=== PATIENT | female | born 1995 | race American Indian/Alaskan Native ===

== ENCOUNTER 2022-08-30 07:10 | Inpatient (IN) | payer BC ==
[2022-08-30] MEDS ORDERED: Misoprostol 50 MCG (1/2 of 100 MCG) Tab VAG ONE (08:10)
[2022-08-30] MEDS ORDERED: Nalbuphine 20 MG/1 ML Amp IM PRN (08:33)
[2022-08-30] MEDS ORDERED: Acetaminophen 325 MG Tab PO PRN (08:33)
[2022-08-30] MEDS ORDERED: Ondansetron 4 MG/2 ML SDV IVPUSH PRN (08:33)
[2022-08-30] MEDS ORDERED: Lidocaine 1% 30 ML SDV INJECT PRN (08:33)
[2022-08-30] MEDS ORDERED: fentaNYL 100 MCG/2 ML SDV IVPUSH PRN (08:33)
[2022-08-30] MEDS ORDERED: Sodium Chloride 0.9% 10 ML Syringe FLUSH PRN (08:33)
[2022-08-30] MEDS ORDERED: Methylergonovine 0.2 MG/1 ML Amp IM PRN (08:33)
[2022-08-30] MEDS ORDERED: Tranexamic Acid 1,000 MG in Sodium Chloride 0.9% 100 ML IV PRN (08:33)
[2022-08-30] MEDS ORDERED: Carboprost Tromethamine 250 MCG/1 ML Amp IM PRN (08:33)
[2022-08-30] MEDS ORDERED: Lactated Ringers 1,000 ML IV ONE (08:33)
[2022-08-30] MEDS ORDERED: Misoprostol 400 MCG (4 X 100 MCG TAB) RECTAL PRN (08:33)
[2022-08-30] MEDS ORDERED: Misoprostol 25 MCG (1/4 of 100 MCG) Tab VAG PRN (08:36)
[2022-08-30 08:45] LABS: HEMATOCRIT 33.6 % (37.0-47.0); HEMOGLOBIN 11.2 g/dL (12.0-16.0); MEAN CORPUSCULAR HEMOGLOBIN 30.2 pg (27.0-34.0); MEAN CORPUSCULAR HGB CONC 33.3 g/dL (33.0-35.0); MEAN CORPUSCULAR VOLUME 90.6 fL (80-100); RED BLOOD CELL COUNT 3.71 10^6/uL (4.2-5.4); WHITE BLOOD CELL COUNT,WBC 6.7 10^3/uL (5.0-10.0)
[2022-08-30] MEDS ORDERED: Oxytocin/Normal Saline 30 UNIT/500 ML BAG IV SCH (08:45)
[2022-08-30] MEDS ORDERED: Lactated Ringers 1,000 ML IV SCH (08:45)
[2022-08-30] MEDS ORDERED: ePHEDrine 50 MG/ML SDV IVPUSH PRN (22:50)
[2022-08-30] MEDS ORDERED: Phenylephrine HCl In 0.9% NaCl 1 MG/10 ML Syringe IVPUSH PRN (22:50)
[2022-08-30] MEDS ORDERED: Ropivacaine 200 MG in Premix Bag 1 BAG EPIDUR SCH (23:00)
[2022-08-31] MEDS ORDERED: Benzocaine/Menthol 20%-0.5% Spray 78 GM Cannister TOP PRN (00:39)
[2022-08-31] MEDS ORDERED: Witch Hazel Medicated Pads 100/Jar TOP PRN (00:39)
[2022-08-31] MEDS ORDERED: Oxytocin 10 Units/1 ML SDV IM PRN (00:39)
[2022-08-31] MEDS ORDERED: Acetaminophen 325 MG Tab PO PRN (00:39)
[2022-08-31] MEDS ORDERED: Measles, Mumps & Rubella Vaccine 0.5 ML SDV SUBCUT ONE (00:39)
[2022-08-31] MEDS ORDERED: Simethicone 80 MG Tab.Chew PO PRN (00:39)
[2022-08-31] MEDS ORDERED: Docusate Sodium 100 MG Cap PO PRN (00:39)
[2022-08-31 08:14] LABS: HEMATOCRIT 32.1 % (37.0-47.0); HEMOGLOBIN 10.7 g/dL (12.0-16.0); MEAN CORPUSCULAR HEMOGLOBIN 30.3 pg (27.0-34.0); MEAN CORPUSCULAR HGB CONC 33.3 g/dL (33.0-35.0); MEAN CORPUSCULAR VOLUME 90.9 fL (80-100); RED BLOOD CELL COUNT 3.53 10^6/uL (4.2-5.4); WHITE BLOOD CELL COUNT,WBC 10.7 10^3/uL (5.0-10.0)
[2022-08-31] MEDS: Prenatal Multivitamin with Calcium/Folic Acid/Iron Tab PO SCH (09:40)
[2022-08-31] MEDS: Ibuprofen 800 MG Tab PO PRN (17:29)
[2022-08-31] MEDS: Ferrous Sulfate 325 MG Tab PO SCH (17:34)
[2022-09-01] MEDS: Prenatal Multivitamin with Calcium/Folic Acid/Iron Tab PO SCH (09:03)
[2022-09-01] MEDS: Ferrous Sulfate 325 MG Tab PO SCH (09:03)
[2022-09-01] MEDS: Ibuprofen 800 MG Tab PO PRN (09:04)
== END 2022-09-01 11:30 | disposition home or self-care (01) | DRG 560 ==
LOC: DL.OBCHECK 07:10 → DL.OB 07:18 → OBSVTOIN 23:16
PROVIDERS: ADMIT Family Medicine; ATTEND Family Medicine
PROC: 10E0XZZ Delivery of Products of Conception, External Approach (ICD-10-PCS; principal; 2022-08-30)
PROC: 0HQ9XZZ Repair Perineum Skin, External Approach (ICD-10-PCS; 2022-08-30)
PROC: 3E0P7VZ Introduction of Hormone into Female Reproductive, Via Natural or Artificial Opening (ICD-10-PCS; 2022-08-30)
PROC: 3E0R3BZ Introduction of Anesthetic Agent into Spinal Canal, Percutaneous Approach (ICD-10-PCS; 2022-08-30)
PROC: 00HU33Z Insertion of Infusion Device into Spinal Canal, Percutaneous Approach (ICD-10-PCS; 2022-08-30)
PROC: 3E0134Z Introduction of Serum, Toxoid and Vaccine into Subcutaneous Tissue, Percutaneous Approach (ICD-10-PCS; 2022-08-31)
DX: O48.0 Post-term pregnancy (principal); O42.02 Full-term premature rupture of membranes, onset of labor within 24 hours of rupture; O77.0 Labor and delivery complicated by meconium in amniotic fluid; O70.0 First degree perineal laceration during delivery; O99.02 Anemia complicating childbirth; D64.9 Anemia, unspecified; O99.814 Abnormal glucose complicating childbirth; Z3A.40 40 weeks gestation of pregnancy; Z37.0 Single live birth
CPT/HCPCS: 01960; 36415; 59409; 85027; 90471; 90707; A9270-GY; J2405; J2590; J2795; J7120

== ENCOUNTER 2024-06-24 20:06 | Inpatient (IN) | payer BC ==
[2024-06-24 21:14] LABS: HEMATOCRIT 33.3 % (37.0-47.0); HEMOGLOBIN 10.6 g/dL (12.0-16.0); MEAN CORPUSCULAR HEMOGLOBIN 27.5 pg (27.0-34.0); MEAN CORPUSCULAR HGB CONC 31.8 g/dL (33.0-35.0); MEAN CORPUSCULAR VOLUME 86.5 fL (80-100); RED BLOOD CELL COUNT 3.85 10^6/uL (4.2-5.4)
[2024-06-24] MEDS ORDERED: Carboprost Tromethamine 250 MCG/1 ML Amp IM PRN (21:42)
[2024-06-24] MEDS ORDERED: Ondansetron 4 MG/2 ML SDV IVPUSH PRN (21:42)
[2024-06-24] MEDS ORDERED: Tranexamic Acid 1,000 MG in Sodium Chloride 0.9% 100 ML IV PRN (21:42)
[2024-06-24] MEDS ORDERED: Acetaminophen 325 MG Tab PO PRN (21:42)
[2024-06-24] MEDS ORDERED: Methylergonovine 0.2 MG/1 ML Amp IM PRN (21:42)
[2024-06-24] MEDS ORDERED: Sodium Chloride 0.9% 10 ML Syringe FLUSH PRN (21:42)
[2024-06-24] MEDS ORDERED: Misoprostol 100 MCG Tab RECTAL PRN (21:42)
[2024-06-24] MEDS: Lactated Ringers 1,000 ML IV ONE (23:30)
[2024-06-25] MEDS ORDERED: Phenylephrine HCl In 0.9% NaCl 1 MG/10 ML Syringe IVPUSH PRN (00:43)
[2024-06-25] MEDS ORDERED: ePHEDrine 50 MG/ML SDV IVPUSH PRN (00:43)
[2024-06-25] MEDS ORDERED: Ropivacaine 200 MG in Premix Bag 1 BAG EPIDUR SCH (00:45)
[2024-06-25] MEDS: Oxytocin/Lactated Ringers 30 UNIT/500 ML BAG IV SCH (01:40)
[2024-06-25] MEDS: Lactated Ringers 1,000 ML IV SCH (01:59)
[2024-06-25] MEDS ORDERED: Simethicone 80 MG Tab.Chew PO PRN (03:01)
[2024-06-25] MEDS ORDERED: Carboprost Tromethamine 250 MCG/1 ML Amp IM PRN (03:01)
[2024-06-25] MEDS ORDERED: Oxytocin 10 Units/1 ML SDV IM PRN (03:01)
[2024-06-25] MEDS ORDERED: Tranexamic Acid 1,000 MG in Sodium Chloride 0.9% 100 ML IV PRN (03:01)
[2024-06-25] MEDS: Benzocaine/Menthol 20%-0.5% Spray 78 GM Cannister TOP PRN (03:51)
[2024-06-25] MEDS: Witch Hazel Medicated Pads 100/Jar TOP PRN (03:51)
[2024-06-25] MEDS: Ibuprofen 800 MG Tab PO SCH (03:52)
[2024-06-25] MEDS: Lidocaine 1% 30 ML SDV INJECT ONE (03:55)
[2024-06-25] MEDS: Prenatal Multivitamin with Calcium/Folic Acid/Iron Tab PO SCH (08:38)
[2024-06-25] MEDS: Docusate Sodium 100 MG Cap PO PRN (08:38)
[2024-06-25] MEDS: Acetaminophen 325 MG Tab PO PRN (08:39)
[2024-06-25] MEDS: Measles, Mumps & Rubella Vaccine 0.5 ML SDV SUBCUT ONE (15:03)
[2024-06-26] MEDS ORDERED: Phenylephrine 1% 10 MG/ML SDV IV ONE (11:41)
[2024-06-26] MEDS ORDERED: Oxytocin/Normal Saline 30 UNIT/500 ML BAG IV ONE (11:41)
[2024-06-26] MEDS ORDERED: Ondansetron 4 MG/2 ML SDV IV ONE (11:41)
[2024-06-26] MEDS ORDERED: Lactated Ringers 1,000 ML IV ONE (11:41)
[2024-06-26] MEDS ORDERED: Ropivacaine 100 ML EPIDUR ONE (11:41)
[2024-06-26] MEDS ORDERED: fentaNYL 100 MCG/2 ML SDV EPIDUR ONE (11:41)
== END 2024-06-26 11:42 | disposition home or self-care (01) | DRG 560 ==
LOC: DL.OBCHECK 20:06 → DL.OB 20:32 → OBSVTOIN 06-25 02:47 → DL.MS 06-25 09:28
PROVIDERS: ADMIT Family Medicine; ATTEND Family Medicine
PROC: 10E0XZZ Delivery of Products of Conception, External Approach (ICD-10-PCS; principal; 2024-06-24)
PROC: 10907ZC Drainage of Amniotic Fluid, Therapeutic from Products of Conception, Via Natural or Artificial Opening (ICD-10-PCS; 2024-06-24)
PROC: 3E0R3BZ Introduction of Anesthetic Agent into Spinal Canal, Percutaneous Approach (ICD-10-PCS; 2024-06-24)
PROC: 00HU33Z Insertion of Infusion Device into Spinal Canal, Percutaneous Approach (ICD-10-PCS; 2024-06-24)
DX: O99.02 Anemia complicating childbirth (principal); Z37.0 Single live birth; D64.9 Anemia, unspecified; Z3A.39 39 weeks gestation of pregnancy
CPT/HCPCS: 01967; 36415; 51701; 59409; 85027; 90471; 90707; A9270-GY; J2371; J2405; J2590; J2795; J3010; J7120